=== PATIENT | female | born 1960 | race Caucasian/White ===

== ENCOUNTER → 2020-12-02 | Outpatient (CLI) | payer OTHER ==
[~2020-12-02] MED LIST: LEVOTHYROXINE100 MC2 PO
== END | disposition home or self-care (01) ==
LOC: COVID19 13:14
PROVIDERS: ATTEND Surgery
DX: Z01.812 Encounter for preprocedural laboratory examination (principal); Z20.822 Contact with and (suspected) exposure to COVID-19

== ENCOUNTER → 2020-12-07 | Day surgery (SDC) | payer OTHER ==
[~2020-12-07] VITALS: Ht 165.1 cm; Wt 98.9 kg
[2020-12-07 07:40] VITALS: BP 114/57
[2020-12-07 08:10] VITALS: BP 122/71
[2020-12-07 08:25] VITALS: BP 127/74
[2020-12-07 08:40] VITALS: BP 128/81
== END ==
LOC: SDC 12-03 08:45
PROVIDERS: ATTEND Surgery
DX: Z12.11 Encounter for screening for malignant neoplasm of colon (principal); K62.1 Rectal polyp; K57.30 Diverticulosis of large intestine without perforation or abscess without bleeding; K64.8 Other hemorrhoids; E03.9 Hypothyroidism, unspecified; Z90.710 Acquired absence of both cervix and uterus; Z79.899 Other long term (current) drug therapy